=== PATIENT | female | born 2000 | race African-American/Black ===

== ENCOUNTER 2023-12-07 23:21 | Emergency (ER) | payer SELFPAY ==
[~2023-12-07] VITALS: Ht 162.6 cm; Wt 60.0 kg
[2023-12-07 23:23] VITALS: PULSE 61; O2SAT 100
[2023-12-07 23:33] VITALS: BP 108/73; RESP 16; TEMP 98.2; O2SAT 100
[2023-12-08] MEDS ORDERED: OCUFLX RIGHTEYE (00:32)
== END 2023-12-08 00:48 | disposition home or self-care (01) ==
LOC: ER 23:21
DX: H10.9 Unspecified conjunctivitis (principal)
CPT/HCPCS: 99283